=== PATIENT | female | born 1980 | race American Indian/Alaskan Native ===

== ENCOUNTER 2017-11-28 11:28 | Emergency (ER) | payer SELFPAY | END 2017-11-28 12:58 | disposition left against medical advice (07) | LOC: ED 11:28 | DX: M54.9 Dorsalgia, unspecified (principal); Z53.21 Procedure and treatment not carried out due to patient leaving prior to being seen by health care provider ==

== ENCOUNTER 2019-01-01 15:24 | Emergency (ER) | payer OTHER ==
[2019-01-01 15:36] VITALS: BP 103/77
--- NOTE | 2019-01-01 15:36 | Emergency Department Report ---
Blank Doc - Documentation Documentation: C/O Chest burning after taking Doxycycline. Pain woke her up from sleep. Jessica kwan was seen at Urgent care in [place] on 12/29/18 for URI, sinus infection. This initial assessment diagnostic orders/clinical plan/treatment (s) is/Are subject change based on patient's health status, clinical progression and re- assessment by fellow clinical providers in the ED. Further treatment and work-up at subsequent clinical providers discretion. Patient/guardians urged not to elope from their condition may be serious if not clinically assessed and managed. Initial order include:
== END 2019-01-01 17:52 ==
LOC: ED 15:24
DX: R07.89 Other chest pain (principal); J02.9 Acute pharyngitis, unspecified; Z53.21 Procedure and treatment not carried out due to patient leaving prior to being seen by health care provider
CPT/HCPCS: 93005; 93010